=== PATIENT | female | born 1995 | race Caucasian/White ===

== ENCOUNTER 2020-05-23 22:04 | Emergency (ER) | payer BC ==
[~2020-05-23] VITALS: Ht 170.2 cm; Wt 68.0 kg
--- NOTE | 2020-05-23 22:32 | Emergency Room Report ---
History of Present Illness General Chief Complaint: Abdominal Pain Source: Patient Present Illness HPI Disclaimer: Please note that this report is being documented using [employer] technology. This can lead to erroneous entry secondary to incorrect interpretation by the dictating instrument. HPI: 24-year-old female history of hepatitis C currently untreated presents for evaluation abdominal distention. Symptoms present over the past 3 days. She notes worsening abdominal distention and generalized pain though somewhat more focused in the suprapubic region. Denies dysuria, hematuria, vaginal bleeding or vaginal discharge. Patient states she has a history of hepatitis C and "liver dysfunction" that sometimes makes her retain fluid but denies ever having paracentesis. Denies changes in appetite or stooling. Denies vomiting or diarrhea. Denies fever or chills. LMP was several months ago but states she does not get regular periods. Took a home test yesterday and today both of which were negative. PMH: Hepatitis C, anxiety, insomnia PSH: Reviewed Allergies: Sulfa Social Hx: Former drug abuse Allergies: Coded Allergies: SULFAMETHOXAZOLE (Verified Allergy, Unknown, 05/23/20) ZIPRASIDONE (Verified Allergy, Unknown, 05/23/20) COVID-19 Screening Contact w/high risk pt: No Experienced COVID-19 symptoms?: No COVID-19 Testing performed ADOBE DEVELOPER: No Patient History Now: No Nursing Documentation-PMH Hx Asthma: Yes Hx Seizures: Yes Review of Systems All Other Systems: negative except mentioned in HPI Physical Exam Vital Signs Date Time Temp Pulse Resp B/P (MAP) Pulse Ox O2 Delivery O2 Flow Rate FiO2 05/23/20 22:12 97.9 112 24 117/71 (86) 98 Room Air General: Awake and alert, anxious appearing HEENT: NC/AT. EOMI. Cardiovascular: Mildly tachycardic. S1 and S2 normal. No murmur appreciated Resp: Normal work of breathing. No cough, wheezing or crackles appreciated Abdomen: Abdomen is soft, distended abdomen. Diffusely tender with somewhat worse in the suprapubic region. No rebound tenderness. Negative Slaazar's tenderness. No flank tenderness. Skin: Intact. No abrasions, laceration or rash over the exposed skin MSK: Normal tone and bulk. Moving all extremities. No obvious deformity. Neuro: Awake and alert. Mentating appropriately. Medical Decision Making Diagnostic Impression: Primary Impression: Constipation Additional Impression: UTI (urinary tract infection) ER Course Is a 24-year-old female presenting for evaluation of 3 days abdominal distention. Differential includes is not immune to UTI, pyelonephritis, cirrhosis, ascites, bowel obstruction, constipation, gas pain among others. X- ray obtained of the abdomen shows nonobstructive bowel gas pattern no significant stool burden. Radiology reports constipation versus ileus. Patient takes many detox meds for opiate abuse and states she has problem with constipation in the past. Typically has good results with milk of magnesia which he states she has at home. Also prescribed her MiraLAX. Urinalysis concerning for acute urinary tract infection. Patient given ceftriaxone in the ED and will be discharged on Macrobid. Chemistry is unremarkable as is CBC. Patient requested abdominal ultrasound to evaluate for ascites however she was unable to tolerate the exam. She stated she was to ticklish to undergo ultrasound today. I feel that her constipation and gaseous distention of the bowels is a better explanation for abdominal discomfort as opposed to sig nificant ascites as she has never required paracentesis in the past. Patient stable for outpatient follow-up. Will treat for constipation and UTI. Follow- up with PMD. Instructed to return with new or worsening symptoms. Laboratory Tests Test 05/23/20 22:30 05/23/20 22:45 Urine Color Yellow Urine Appearance Very cloudy Urine pH 5 (4.5-8.0) Urine Specific [place] 1.030 (1.005-1.035) Urine Protein 2+ (NEGATIVE) H Urine Glucose (UA) Negative (NEGATIVE) Urine Ketones 1+ (NEGATIVE) H Urine Blood 1+ (NEGATIVE) H Urine Nitrite Negative (NEGATIVE) Urine Bilirubin Negative (NEGATIVE) Urine Urobilinogen 1 MG/DL (0.0-1.0) H Urine Leukocyte Esterase 3+ (NEGATIVE) H Urine RBC 5-10 /HPF (0 - 2) H Urine WBC 20-30 /HPF (0 - 2) H Urine Squamous Epithelial Cells Many /LPF (NONE/OCC) H Urine Bacteria Moderate /HPF (NONE) H Urine HCG, Qualitative Negative (NEGATIVE) White Blood Count 9.4 K/UL (4.8-10.8) Red Blood Count 4.40 M/UL (4.20-5.40) Hemoglobin 12.7 G/DL (12.0-16.0) Hematocrit 35.1 % (37.0-47.0) L Mean Corpuscular Volume 80 FL (80-99) Mean Corpuscular Hemoglobin 28.8 PG (27.0-31.0) Mean Corpuscular Hemoglobin Concent 36.1 G/DL (32.0-36.0) H Red Cell Distribution Width 13.4 % (11.6-14.8) Platelet Count 243 K/UL (150-450) Mean Platelet Volume 6.3 FL (6.5-10.1) L Neutrophils (%) (Auto) 43.0 % (45.0-75.0) L Lymphocytes (%) (Auto) 41.6 % (20.0-45.0) Monocytes (%) (Auto) 9.2 % (1.0-10.0) Eosinophils (%) (Auto) 4.5 % (0.0-3.0) H Basophils (%) (Auto) 1.8 % (0.0-2.0) Sodium Level 141 MMOL/L (136-145) Potassium Level 3.6 MMOL/L (3.5-5.1) Chloride Level 108 MMOL/L (98-107) H Carbon Dioxide Level 26 MMOL/L (21-32) Anion Gap 8 mmol/L (5-15) Blood Urea Nitrogen 15 mg/dL (7-18) Creatinine 0.8 MG/DL (0.55-1.30) Estimated Glomerular Filtration Rate > 60 mL/min (>60) Glucose Level 92 MG/DL (74-106) Calcium Level 8.2 MG/DL (8.5-10.1) L Total Bilirubin 0.2 MG/DL (0.2-1.0) Aspartate Amino Transferase (AST) 12 U/L (15-37) L Alanine Aminotransferase (ALT) 16 U/L (12-78) Alkaline Phosphatase 96 U/L (46-116) Total Protein 6.6 G/DL (6.4-8.2) Albumin 3.2 G/DL (3.4-5.0) L Globulin 3.4 g/dL Albumin/Globulin Ratio 0.9 (1.0-2.7) L Lipase 102 U/L (73-393) Other X-Ray Diagnostic Results Other X-Ray Diagnostic Results : X-Ray ordered: Abdomen # of Views/Limited Vs Complete: 1 View Indication: Swelling EP Interpretation: Yes Interpretation: nonspecific bowel gas, no sbo, other - Gaseous distention of the stomach, moderate stool burden Impression: Other - Stomach distention, constipation Electronically Signed by: Electronically signed by Dr. Kannan Montes MD Last Vital Signs Date Time Temp Pulse Resp B/P (MAP) Pulse Ox O2 Delivery O2 Flow Rate FiO2 05/23/20 22:12 97.9 112 24 117/71 (86) 98 Room Air Disposition: HOME, SELF-CARE Condition: Stable Scripts Polyethylene Glycol 3350* (MIRALAX*) 17 Gm Powd.pack 17 GM ORAL BID for 14 Days, #30 PACKET Prov: Kannan Montes MD 05/23/20 Nitrofurantoin Monohyd/M-Cryst* (MACROBID 100 MG*) 100 Mg Capsule 100 MG ORAL EVERY 12 HOURS for 5 Days, #10 CAP Prov: Kannan Montes MD 05/23/20 Kannan Montes MD May 23, 2020 22:32
[2020-05-23 23:00] VITALS: BP 118/81
[2020-05-23 23:05] LABS: BASOPHILS % (AUTO) 1.8 % (0.0-2.0); EOSINOPHILS % (AUTO) 4.5 % (0.0-3.0); HEMATOCRIT 35.1 % (37.0-47.0); HEMOGLOBIN 12.7 G/DL (12.0-16.0); LYMPHOCYTES % (AUTO) 41.6 % (20.0-45.0); MEAN CORPUSCULAR VOLUME 80 FL (80-99); MONOCYTES % (AUTO) 9.2 % (1.0-10.0); PLATELET COUNT 243 K/UL (150-450); RED CELL DISTRIBUTION WIDTH 13.4 % (11.6-14.8); WHITE BLOOD COUNT 9.4 K/UL (4.8-10.8)
[2020-05-23 23:06] LABS: APPEARANCE,URINE VERY CLOUDY; BILIRUBIN, URINE NEGATIVE (NEGATIVE); GLUCOSE, URINE (UA) NEGATIVE (NEGATIVE); KETONES,URINE 1+ (NEGATIVE); LEUKOCYTE ESTERASE ,URINE 3+ (NEGATIVE); NITRITE,URINE NEGATIVE (NEGATIVE); PH,URINE 5 (4.5-8.0); PROTEIN,URINE 2+ (NEGATIVE); UROBILINOGEN,URINE 1 MG/DL (0.0-1.0)
[2020-05-23 23:07] LABS: COLOR,URINE YELLOW
[2020-05-23 23:10] LABS: ANION GAP 8 mmol/L (5-15); BLOOD UREA NITROGEN 15 mg/dL (7-18); CALCIUM 8.2 MG/DL (8.5-10.1); CARBON DIOXIDE 26 MMOL/L (21-32); CHLORIDE 108 MMOL/L (98-107); CREATININE 0.8 MG/DL (0.55-1.30); POTASSIUM 3.6 MMOL/L (3.5-5.1); SODIUM 141 MMOL/L (136-145)
[2020-05-23 23:14] LABS: ALANINE AMINOTRANSFERASE 16 U/L (12-78); ALBUMIN 3.2 G/DL (3.4-5.0); ALBUMIN/GLOBULIN RATIO 0.9 (1.0-2.7); ALKALINE PHOSPHATASE 96 U/L (46-116); ASPARTATE AMINO TRANSFERASE 12 U/L (15-37); BILIRUBIN,TOTAL 0.2 MG/DL (0.2-1.0)
--- NOTE | 2020-05-23 23:14 | Diagnostic Imaging Report ---
EXAM: XR Abdomen, 1 View CLINICAL HISTORY: ABD DIST TECHNIQUE: Frontal supine view of the abdomen/pelvis. COMPARISON: No relevant prior studies available. FINDINGS: Gastrointestinal tract: Nonobstructive bowel gas pattern. Moderate colonic stool/air which may be ileus/constipation. Bones/joints: Unremarkable. IMPRESSION: Nonobstructive bowel gas pattern. Moderate colonic stool/air which may be ileus/constipation.
[2020-05-23] MEDS ORDERED: NITROFURANTOIN100 M2 ORAL (23:22)
[2020-05-23] MEDS ORDERED: MIRALAX17 G2 ORAL (23:22)
[2020-05-23] MEDS ORDERED: Ketorolac 30mg Inj IV ONE (23:45)
[2020-05-23] MEDS ORDERED: cefTRIAXone 1 GM in NS 55 ML IVPB ONE (23:45)
[2020-05-24 00:15] VITALS: BP 121/78
== END 2020-05-24 00:15 | disposition home or self-care (01) ==
LOC: EMR 22:40
DX: K59.00 Constipation, unspecified (principal); N39.0 Urinary tract infection, site not specified; J45.909 Unspecified asthma, uncomplicated; G40.909 Epilepsy, unspecified, not intractable, without status epilepticus; Z88.2 Allergy status to sulfonamides; Z88.8 Allergy status to other drugs, medicaments and biological substances
CPT/HCPCS: 36415; 74018; 80053; 81003; 81025; 83690; 85025; 87086; 96365; 96375; 99284; J0696; J1885